=== PATIENT | male | born 1960 | race Two or more races ===

== ENCOUNTER 2024-10-14 01:21 | Inpatient (IN) | payer MEDICARE, MEDICAID ==
[~2024-10-14] VITALS: Ht 175.3 cm; Wt 65.5 kg
[2024-10-14] VITALS (9 sets, daily range): BP systolic 111–150; BP diastolic 60–82; PULSE 77–91; RESP 13–20; TEMP 98–99; O2SAT 96–99
[2024-10-14] MEDS: KETOROLAC TROMETH 30 MG/ML 1ML VIAL IV ONE (01:58)
[2024-10-14] MEDS: PANTOPRAZOLE 40 MG/10 ML VIAL INJ IV ONE (01:58)
[2024-10-14] MEDS: ONDANSETRON HCL 4 MG/2 ML VIAL IV ONE ×2 (01:58→04:19)
[2024-10-14] MEDS: SODIUM CHLORIDE 0.9% 1,000 ML IV ONE (01:58)
--- NOTE | 2024-10-14 02:00 | ED.PDOC ---
GI ASSESSMENT HPI Comments 64-year-old male who came to emergency room via EMS for abdominal pain. Patient started having burning epigastric abdominal pain since 9:00 p.m. associated with bouts of nausea and vomiting. Denies any changes in bowel habits. Possibly ate some spoiled food. Denies any history of abdominal surgeries. Chief Complaint: Abdominal Pain Time Seen by MD: 02:00 Reviewed Notes: Nurses Notes Allergies: Coded Allergies: NO KNOWN ALLERGIES (Unverified , 10/14/24) Information Source: Patient Mode of Arrival: EMS Timing: Hours Duration: Since onset Prehospital treatment: None Quality: Burning Vomitus: Watery Stool: Normal Severity: Moderate Recent: Possible spoiled food Recent Hx of: None Pain Location: Epigastric Modifying Factors: Nothing Associated sign and symptoms: Nausea, Vomiting, Abdominal Pain Past Medical History PAST MEDICAL HISTORY: High Lipids, HTN, [place] Surgical History: PTCA Family History Family History: Reviewed,noncontributory to illness Social History Smoker: Non-Smoker Alcohol: Denies ETOH Use Drugs: Denies Drug Use Lives In: Home Constitutional: denies: chills, diaphoresis, fatigue, fever, malaise, sweats, weakness, others EENTM: denies: blurred vision, double vision, ear bleeding, ear discharge, ear drainage, ear pain, ear ringing, eye pain, eye redness, hearing loss, mouth pain, mouth swelling, nasal discharge, nose bleeding, nose congestion, nose pain, photophobia, tearing, throat pain, throat swelling, voice changes, others Respiratory: denies: cough, hemoptysis, orthopnea, SOB at rest, shortness of breath, SOB with excertion, stridor, wheezing, others Cardiovascular: denies: chest pain, dizzy spells, diaphoresis, Dyspnea on exertion, edema, irregular heart beat, left arm pain, lightheadedness, palpitations, PND, syncope, others Gastrointestinal: reports: abdominal pain, nausea, vomiting; denies: abdomen distended, blood streaked bowels, constipated, diarrhea, dysphagia, difficulty swallowing, hematemesis, melena, poor appetite, poor fluid intake, rectal bleeding, rectal pain, others Genitourinary: denies: burning, dysuria, flank pain, frequency, hematuria, incontinence, penile discharge, penile sore, pain, testicle pain, testicle swelling, urgency, others Neurological: denies: dizziness, fainting, headache, left sided numbness, left sided weakness, numbness, paresthesia, pre-existing deficit, right sided numbness, right sided weakness, seizure, speech problems, tingling, tremors, weakness, others Musculoskeletal: denies: back pain, gout, joint pain, joint swelling, muscle pain, muscle stiffness, neck pain, others Integumetry: denies: bruises, change in color, change in hair/nails, dryness, laceration, lesions, lumps, rash, wounds, others Allergic/Immunocompromised: denies: Difficulty Healing, Frequent Infections, Hives, Itching, others Hematologic/Lymphatic: denies: anemia, blood clots, easy bleeding, easy bruising, swollen glands, others Endocrine: denies: excessive hunger, excessive sweating, excessive thirst, excessive urination, flushing, intolerance to cold, intolerance to heat, unexplained weight gain, unexplained weight loss, others Psychiatric: denies: anxiety, bipolar disorder, depression, hopeless, panic disorder, schizophrenia, sleepless, suicidal, others Physical Exam General Appearance: No Apparent Distress, Normal HEENT: Normal ENT Inspection, Pharynx Normal, TMs Normal Neck: Full Range of Motion, Non-Tender, Normal, Normal Inspection Respiratory: Chest Non-Tender, Lungs Clear, No Accessory Muscle Use, No Respiratory Distress, Normal Breath Sounds Cardiovascular: No Edema, No JVD, No Murmur, No Gallop, Normal Peripheral Pulses, Regular Rate/Rhythm Breast Exam: Deferred Gastrointestinal: No Organomegaly, Non Tender, No Pulsatile Mass, Normal Bowel Sounds, Soft Genitalia: Deferred Pelvic: Deferred Rectal: Deferred Extremities: No calf tenderness, Normal capillary refill, Normal inspection, Normal range of motion, Non-tender, No pedal edema Musculoskeletal : Apperance: Normal Neurologic: Alert, natural sciences professor II-XII nml as Tested, No Motor Deficits, Normal Affect, Normal Mood, No Sensory Deficits Cerebellar Function: Normal Reflexes: Normal Skin: Dry, Normal Color, Warm Lymphatic: No Adenopathy Was a procedure done? Was a procedure done?: No GI differential Dx Differential Diagnosis: Bowel Obstruction, Diverticular disease, Gastritis/PUD, Gastroenteritis, Hernia, UTI, Urolithiasis, Electrolyte Imbalance, Food Poisoning X-Ray, Labs, Meds, VS Vital Signs Date Time Temp Pulse Resp B/P (MAP) Pulse Ox O2 Delivery O2 Flow Rate FiO2 10/14/24 04:20 77 15 165/75 10/14/24 04:01 77 14 187/89 (121) 99 10/14/24 03:40 97.7 77 13 183/82 (115) 99 97.7 10/14/24 03:40 77 13 99 Room Air* 0 21 10/14/24 01:26 77 10/14/24 01:21 97.6 80 20 180/88 (118) 100 Lab Test 10/14/24 03:25 10/14/24 01:45 Range/Units Sodium Level 134 L 136-145 mmol/L Potassium Level 4.6 3.5-5.1 mmol/L Chloride Level 97 L 98-107 mmol/L Carbon Dioxide Level 21 20-31 mmol/L Anion Gap 16 H 5-15 Blood Urea Nitrogen 12 9-23 mg/dL Creatinine 0.91 0.700-1.30 mg/dL Glomerular Filtration Rate Calc 95 >90 mL/min BUN/Creatinine Ratio 13.2 10.0-20.0 Serum Glucose 354 H 74-106 mg/dL Calcium Level 10.2 8.7-10.4 mg/dL Total Bilirubin 0.9 0.2-1.0 mg/dL Aspartate Amino Transferase (AST) 20 13-40 U/L Alanine Aminotransferase (ALT) 31 7-40 U/L Alkaline Phosphatase 107 46-116 U/L Total Protein 7.5 5.7-8.2 g/dL Albumin 4.8 3.2-4.8 g/dL Lipase 62 H 12-53 U/L White Blood Count 7.9 4.4-10.8 10^3/uL Red Blood Count 4.92 4.5-5.90 10^6/uL Hemoglobin 16.1 13.5-17.5 g/dL Hematocrit 44.6 41.0-53.0 % Mean Corpuscular Volume 90.7 80.0-100.0 fL Mean Corpuscular Hemoglobin 32.8 H 28.0-32.0 pg Mean Corpuscular Hemoglobin Concent 36.2 H 32.0-36.0 g/dL Red Cell Distribution Width 12.9 11.8-14.3 % Platelet Count 217 140-450 10^3/uL Mean Platelet Volume 8.2 6.9-10.8 fL Neutrophils (%) (Auto) 75.5 37.0-80.0 % Lymphocytes (%) (Auto) 19.9 10.0-50.0 % Monocytes (%) (Auto) 3.9 0.0-12.0 % Eosinophils (%) (Auto) 0.4 0.0-7.0 % Basophils (%) (Auto) 0.3 0.0-2.0 % Neutrophils # (Auto) 6.0 1.6-8.6 10 ^3/uL Lymphocytes # (Auto) 1.6 0.4-5.4 10 ^3/uL Monocytes # (Auto) 0.3 0-1.3 10 ^3/uL Eosinophils # (Auto) 0 0-0.8 10 ^3/uL Basophils # (Auto) 0 0-0.2 10 ^3/uL Nucleated Red Blood Cells 0.1 % Troponin I High Sensitivity < 3 L </=54 ng/L Current Medications Medications (Trade) Dose Ordered Sig/Galdino Route Start Time Stop Time Status Last Admin Sodium Chloride 1,000 ml @ 1,000 mls/hr Q1H ONCE IV 10/14/24 01:30 10/14/24 02:29 DC 10/14/24 01:58 Ondansetron HCl (Zofran) 4 mg ONCE ONCE IV 10/14/24 01:30 10/14/24 01:31 DC 10/14/24 01:58 Ketorolac Tromethamine (Toradol Injection) 15 mg ONCE ONCE IV 10/14/24 01:30 10/14/24 01:31 DC 10/14/24 01:58 Pantoprazole Sodium (Protonix) 40 mg ONCE ONCE IV 10/14/24 01:30 10/14/24 01:31 DC 10/14/24 01:58 Morphine Sulfate 4 mg ONCE ONCE IV 10/14/24 04:15 10/14/24 04:16 DC 10/14/24 04:20 Ondansetron HCl (Zofran) 4 mg ONCE ONCE IV 10/14/24 04:15 10/14/24 04:16 DC 10/14/24 04:19 Time of 1ST Reevaluation: 01:56 Reevaluation 1ST: Unchanged Patient Education/Counseling: Diagnosis, Treatment Family Education/Counseling: No Family Present Departure 1 Departure Time of Disposition: 05:25 (Patient presented with abdominal pain that was concerning for possible appendicits, gastritis, cholecystitis, colitis, gastroenteritis, sbo, or orther possible surgical emergency. Data: 1. I ordered and reviewed the result of at least 3 labs including a CBC, BMP, and Urinalysis. 2. I independently interpreted the following tests: CT Abdoment and Pelvis is concerning for hydroureter .Risk:This patient has a high risk of morbidity due to further diagnostic testing or treatment and may suffer from an acute abdominal process disorder. Workup reveals bilateral hydroureter and patient's inability to tolerate p.o. with intractable abdominal pain. and patient should be admitted for further workup. and possible expert consultation. ) Impression: Primary Impression: Projectile vomiting with nausea Additional Impressions: Intractable abdominal pain Hydroureter Disposition: ADMITTED INPATIENT Admit to: Med Surg Condition: Serious Critical Care Note Critical Care Time?: Yes (35 min-critical care time only) Critical care comment: Intractable abdominal pain Authorized and Performed by: Kiley Armas MD Total critical care time: Approximately 48 minutes Due to a high probability of clinically significant, life threatening deterioration, the patient required my highest level of preparedness to intervene emergently and I personally spent this critical care time directly and personally managing the patient. This critical care time included obtaining a history; examining the patient; pulse oximetry; ordering and review of studies; arranging urgent treatment with development of a management plan; evaluation of patient's response to treatment; frequent reassessment; and, discussions with other providers. This critical care time was performed to assess and manage the high probability of imminent, life-threatening deterioration that could result in multi-organ failure. It was exclusive of separately billable procedures and treating other patients and teaching time. Please see my other sections and the rest of the note for further information on patient assessment and treatment. Stability Stability form required: No Heart Score Heart Score: Heart Score Response (Comments) Value History N/A 0 EKG N/A 0 Age N/A 0 Risk Factors N/A 0 Troponin N/A 0 Total 0 I personally scribed for KILEY ARMAS MD ([email or web address]) on 10/14/24 at 02:00. Electronically submitted by Mike Felipe ([email or web address]). KILEY ARMAS MD Oct 14, 2024 02:00
[2024-10-14 02:35] LABS: Basophils # (auto) 0 10 ^3/uL (0-0.2); Basophils % (auto) 0.3 % (0.0-2.0); Eosinophils # (auto) 0 10 ^3/uL (0-0.8); Eosinophils % (auto) 0.4 % (0.0-7.0); Hematocrit 44.6 % (41.0-53.0); Hemoglobin 16.1 g/dL (13.5-17.5); Lymphocytes # (auto) 1.6 10 ^3/uL (0.4-5.4); Lymphocytes % (auto) 19.9 % (10.0-50.0); Mean Corpuscular Hemoglobin 32.8 pg (28.0-32.0); Mean Corpuscular Hgb Conc. 36.2 g/dL (32.0-36.0); Mean Corpuscular Volume 90.7 fL (80.0-100.0); Monocytes # (auto) 0.3 10 ^3/uL (0-1.3); Monocytes % (auto) 3.9 % (0.0-12.0); Neutrophils % (auto) 75.5 % (37.0-80.0); Nucleated Red Blood Cells % 0.1 %; Platelet Count (auto) 217 10^3/uL (140-450); Red Blood Cells 4.92 10^6/uL (4.5-5.90); Red Cell Distribution Width 12.9 % (11.8-14.3); White Blood Cell 7.9 10^3/uL (4.4-10.8)
[2024-10-14] MEDS: IOHEXOL 300 MG/ML 100ML BOTTLE IJ ONE (03:19)
[2024-10-14 04:02] LABS: Anion Gap 16 (5-15)
[2024-10-14 04:19] LABS: BUN/Creatinine Ratio 13.2 (10.0-20.0)
[2024-10-14 04:20] LABS: Alanine Aminotransferase 31 U/L (7-40); Albumin 4.8 g/dL (3.2-4.8); Alkaline Phosphatase 107 U/L (46-116); Aspartate Aminotransferase 20 U/L (13-40); Bilirubin, Total 0.9 mg/dL (0.2-1.0); Blood Urea Nitrogen 12 mg/dL (9-23); Calcium 10.2 mg/dL (8.7-10.4); Carbon Dioxide 21 mmol/L (20-31); Chloride 97 mmol/L (98-107); Glucose 354 mg/dL (74-106); Lipase 62 U/L (12-53); Potassium 4.6 mmol/L (3.5-5.1); Sodium 134 mmol/L (136-145); Total Protein 7.5 g/dL (5.7-8.2)
[2024-10-14] MEDS: MORPHINE SULFATE 4 MG/ML SYR/VIAL IV ONE (04:20)
--- NOTE | 2024-10-14 05:23 | DVH ---
Exam: CT CT AB PEL WITH IV CON ONLY History: abdominal pain, inability to tolerate po Comparison Study: None available at time of dictation. Contrast: 100 cc Omnipaque 300 TECHNIQUE: A digital road mechanic image was obtained. During the uneventful, intravenous administration of c ontrast material, multislice data acquisition was obtained through the abdomen and pelvis. The data s et was subsequently reconstructed into axial images. Images were reviewed on a work station using a c ombination of axial and multiplanar using a variety of window levels and settings. All CT scans at this medical facility are performed using dose modulation techniques as appropriate t o a performed exam including the following: Automated exposure control was utilized; adjustment of th e MA and/or KV according to patient size; and use of iterative reconstruction technique. Radiation Dose Information: CT Dose: CTDI volume is 8.3 mGy. Dose-length product is 491 mGy*cm FINDINGS: Imaged portions of the lung bases demonstrate interstitial prominence. There is diffuse hepatic steatosis. Gallbladder, spleen, pancreas and adrenal glands appear unremark able. The kidneys appear symmetric. Small hiatal hernia. No evidence of bowel obstruction or focal bowel wall thickening. Moderate intracolonic stool. The a ppendix appears normal. No free fluid, free air, or adenopathy. Urinary bladder is mildly distended with mild bilateral hydroureter. No free fluid, free air, or adenopathy. No suspicious osseous lesion. IMPRESSION: 1. Prominent urinary bladder with mild bilateral hydroureter. 2. Diffuse hepatic steatosis 3. Small hiatal hernia HS:Y
[2024-10-14 05:29] LABS: Urine Bacteria None Seen /hpf (None Seen)
[2024-10-14 05:45] LABS: Urine Blood Negative /uL (Negative); Urine Clarity Clear (Clear); Urine Color Light-Yellow (Yellow); Urine Protein, UAD TRACE (Negative); Urine Specific Gravity 1.034 (1.001-1.035); Urine Squamous Epithelial Cell None Seen /hpf (<5); Urine Urobilinogen Normal (Negative); Urine WBC < 1 /HPF (0-3)
[2024-10-14] MEDS: hydrALAZINE HCL 20 MG/ML VL IV ONE (06:02)
[2024-10-14] MEDS ORDERED: ACETAMINOPHEN 325 MG TAB PO PRN (06:45)
[2024-10-14] MEDS ORDERED: ONDANSETRON HCL 4 MG/2 ML VIAL IV PRN (06:45)
[2024-10-14] MEDS ORDERED: LORazepam 0.5 MG TAB PO PRN (06:45)
[2024-10-14] MEDS ORDERED: DEXTROSE (50%) 50ML SYRG IV PRN (06:45)
[2024-10-14] MEDS ORDERED: HYDROcodone-ACET 5/325MG TAB PO PRN (06:45)
[2024-10-14] MEDS ORDERED: CLOP75TA70 PO (06:57)
[2024-10-14] MEDS ORDERED: METO-289 PO (06:57)
--- NOTE | 2024-10-14 07:01 | DVHHP2 ---
History of Present Illness Reason for Visit: Abdominal pain History of Present Illness Bc Gomez is a 64-year-old male with past medical history of hypertension, hyperlipidemia, diabetes, [place] status post PTCA x4 at [place] who presents to the ED with abdominal pain with nausea and vomiting after eating shrimp and having 4 beers. Patient reports that the pain is currently 6/10 burning and sharp intermittent in nature. Patient reports that he drinks 6 beers per day on the weekends however daughter and states that he drinks daily. He also reports that the abdominal pain is localized. Patient denies any chest pain, shortness of breath, fever, chills, lightheadedness, weakness, dizziness, bloody stool, bloody emesis, diarrhea, and recent trauma or injury. Cardiovascular: HTN, GA, hyperipidemia Endocrine: Diabetes Past Surgical History: Other (PTCA x4 at [place]) Family History: None Smoke: No ALCOHOL: heavy Drugs: None Lives: Alone Domestic Violence: Neg Review of Systems Gastrointestinal: Nausea, Vomiting, Abdominal Pain Allergies: Coded Allergies: NO KNOWN ALLERGIES (Unverified , 10/14/24) Exam Vital Signs Vital Signs Date Time Temp Pulse Resp B/P (MAP) Pulse Ox O2 Delivery O2 Flow Rate FiO2 10/14/24 06:02 165/75 10/14/24 06:00 73 14 94 10/14/24 03:40 97.7 97.7 10/14/24 03:40 Room Air* 0 21 General Appearance: Alert, Oriented X3, Cooperative, No acute distress HEENT: Atraumatic, PERRLA, EOMI, Mucous membr. moist/pink Respiratory: Clear to auscultation, Normal air movement Cardiovascular: Regular rate, Normal S1, Normal S2, No murmurs Abdominal: Soft, No hepatospenomegaly, No masses Extremities: No clubbing, No cyanosis, No edema, Normal pulses, No tenderness/swelling Skin: No rashes, No breakdown, No significant lesion Neuro: Normal gait, Normal speech, Strength at 5/5 X4 ext, Normal tone, Sensation intact Psych/Mental Status: Mental status NL, Mood NL Labs/Xrays Labs Test 10/14/24 05:39 10/14/24 05:15 10/14/24 03:25 10/14/24 01:45 Range/Units POC Glucose 301 H 70-106 mg/dl Urine Color Light-yellow Yellow Urine Clarity Clear Clear Urine pH 7.0 5.0-9.0 Urine Specific [place] 1.034 1.001-1.035 Urine Protein Trace H Negative Urine Ketones 1+ H Negative Urine Blood Negative Negative /uL Urine Nitrite Negative Negative Urine Bilirubin Negative Negative Urine Urobilinogen Normal Negative mg/dL Urine Leukocyte Esterase Negative Negative /uL Urine RBC None seen 0 - 3 /hpf Urine Microscopic WBC < 1 0-3 /HPF Urine Squamous Epithelial Cells None seen <5 /hpf Urine Bacteria None seen None Seen /hpf Urine Glucose 4+ H Normal mg/dL Sodium Level 134 L 136-145 mmol/L Potassium Level 4.6 3.5-5.1 mmol/L Chloride Level 97 L 98-107 mmol/L Carbon Dioxide Level 21 20-31 mmol/L Anion Gap 16 H 5-15 Blood Urea Nitrogen 12 9-23 mg/dL Creatinine 0.91 0.700-1.30 mg/dL Glomerular Filtration Rate Calc 95 >90 mL/min BUN/Creatinine Ratio 13.2 10.0-20.0 Serum Glucose 354 H 74-106 mg/dL Calcium Level 10.2 8.7-10.4 mg/dL Total Bilirubin 0.9 0.2-1.0 mg/dL Aspartate Amino Transferase (AST) 20 13-40 U/L Alanine Aminotransferase (ALT) 31 7-40 U/L Alkaline Phosphatase 107 46-116 U/L Total Protein 7.5 5.7-8.2 g/dL Albumin 4.8 3.2-4.8 g/dL Lipase 62 H 12-53 U/L White Blood Count 7.9 4.4-10.8 10^3/uL Red Blood Count 4.92 4.5-5.90 10^6/uL Hemoglobin 16.1 13.5-17.5 g/dL Hematocrit 44.6 41.0-53.0 % Mean Corpuscular Volume 90.7 80.0-100.0 fL Mean Corpuscular Hemoglobin 32.8 H 28.0-32.0 pg Mean Corpuscular Hemoglobin Concent 36.2 H 32.0-36.0 g/dL Red Cell Distribution Width 12.9 11.8-14.3 % Platelet Count 217 140-450 10^3/uL Mean Platelet Volume 8.2 6.9-10.8 fL Neutrophils (%) (Auto) 75.5 37.0-80.0 % Lymphocytes (%) (Auto) 19.9 10.0-50.0 % Monocytes (%) (Auto) 3.9 0.0-12.0 % Eosinophils (%) (Auto) 0.4 0.0-7.0 % Basophils (%) (Auto) 0.3 0.0-2.0 % Neutrophils # (Auto) 6.0 1.6-8.6 10 ^3/uL Lymphocytes # (Auto) 1.6 0.4-5.4 10 ^3/uL Monocytes # (Auto) 0.3 0-1.3 10 ^3/uL Eosinophils # (Auto) 0 0-0.8 10 ^3/uL Basophils # (Auto) 0 0-0.2 10 ^3/uL Nucleated Red Blood Cells 0.1 % Troponin I High Sensitivity < 3 L </=54 ng/L Exam: CT CT AB PEL WITH IV CON ONLY History: abdominal pain, inability to tolerate po Comparison Study: None available at time of dictation. Contrast: 100 cc Omnipaque 300 TECHNIQUE: A digital cnc wood lathe operator image was obtained. During the uneventful, intravenous administration of contrast material, multislice data acquisition was obtained through the abdomen and pelvis. The data set was subsequently reconstructed into axial images. Images were reviewed on a work station using a combination of axial and multiplanar using a variety of window levels and set tings. All CT scans at this medical facility are performed using dose modulation techniques as appropriate to a performed exam including the following: Automated exposure control was utilized; adjustment of the MA and/or KV according to patient size; and use of iterative reconstruction technique. Radiation Dose Information: CT Dose: CTDI volume is 8.3 mGy. Dose-length product is 491 mGy*cm FINDINGS: Imaged portions of the lung bases demonstrate interstitial prominence. There is diffuse hepatic steatosis. Gallbladder, spleen, pancreas and adrenal glands appear unremarkable. The kidneys appear symmetric. Small hiatal hernia. No evidence of bowel obstruction or focal bowel wall thickening. Moderate intracolonic stool. The appendix appears normal. No free fluid, free air, or adenopathy. Urinary bladder is mildly distended with mild bilateral hydroureter. No free fluid, free air, or adenopathy. No suspicious osseous lesion. IMPRESSION: 1. Prominent urinary bladder with mild bilateral hydroureter. 2. Diffuse hepatic steatosis 3. Small hiatal hernia Assessment/Plan Assessment/Plan Assessment Intractable abdominal pain likely due to gastroenteritis from ETOH abuse Glucosuria Hyperlipasemia Hyponatremia Diabetes type 2 uncontrolled Mild bilateral hydroureters Diffuse hepatic steatosis Small hiatal hernia History of hypertension History of hyperlipidemia History of GA status post PTCA x4 at [place] 5 years ago Plan Admit to [facility] Hemoglobin A1c ISS and Accu-Cheks Amylase CIWA protocol Counseled patient on cessation of EtOH abuse UA CT abdomen and pelvis P.r.n. hypertensive Antiemetics Pain management PPI IV fluids given in ED EKG Troponin negative x1 Continue home medications Plan discussed with: Patient My Orders Orders - GARRET SOTO MASTER [employer] Procedure Category Date Status Time Blood Alcohol LAB 10/14/24 Verified 06:41 Urinalysis LAB 10/14/24 Verified 06:41 Magnesium LAB 10/14/24 Verified 06:41 Thiamine 100mg Po PHA 10/14/24 Verified Daily 10:00 Folic Acid 1mg Po PHA 10/14/24 Verified Daily 10:00 Mvi Tablet Po Daily PHA 10/14/24 Verified 10:00 Thiamine 100mg Po Now PHA 10/14/24 Verified 06:45 Mvi 1 Tablet Po Now PHA 10/14/24 Verified 06:45 Folic Acid 1mg Po Now PHA 10/14/24 Verified 06:45 Ativan 2mg Po Stat PHA 10/14/24 Verified 06:45 Ativan 2mg Po Q4h Atc PHA 10/14/24 Verified 06:45 Ativan 2mg Po Q2hr Prn PHA 10/14/24 Verified 06:45 Etoh Withdrawal EKTA 10/14/24 Verified Assessment 06:41 Etoh Withdrawal EKTA 10/14/24 Verified Assessment 06:41 Amylase LAB 10/14/24 Verified 06:41 Admit ADMIT 10/14/24 Verified 06:41 Allergies EKTA 10/14/24 Verified 06:41 Code Status CODE 10/14/24 Verified 06:41 Hydrocodone-Acet PHA 10/14/24 Verified 5/325mg Tab ([place] 06:45 Ondansetron Hcl PHA 10/14/24 Verified (Zofran) 06:45 Complete Blood Count LAB 10/15/24 Verified 04:00 Comprehensive LAB 10/15/24 Verified Metabolic Panel 04:00 Cardiac DIET 10/14/24 Verified Diet-2gna,Lofat,Lochol Breakfast Acetaminophen Tablet PHA 10/14/24 Verified (Tylenol Tablet) 06:45 Glucose Blood PHA 10/14/24 Verified (Accu-Chek Comfort 07:00 Mild Sliding Scale PHA 10/14/24 Verified 07:00 Dextrose 50% Syringe PHA 10/14/24 Verified 06:45 Hemoglobin A1c LAB 10/14/24 Verified 06:41 Date of Service: Oct 14, 2024 Billing Provider: GARRET SOTO Common Visit Codes: [id number] INP/OBS CARE (HIGH) GARRET SOTO Oct 14, 2024 07:01
--- NOTE | 2024-10-14 07:18 | ECG ---
[facility] Test Date: 2024-10-14 Test Time: 01:26:30 Pat Name: SUNIL WILCOX Department: ED Room: 0294 Gender: M Pearl Fisherman: : 1960 Requested By: KILEY BROWN Order Number: [id number] Reading MD: Preston Huerta Measurements Intervals [place] Rate: 77 P: -2 [place]: 164 QRS: 8 QRSD: 125 T: 39 QT: 435 QTc: 493 Interpretive Statements Sinus rhythm Nonspecific intraventricular conduction delay Electronically Signed On 10-15-2024 18:45:05 PST by Preston Huerta Please click the below link to view image of tracing.
[2024-10-14 08:29] LABS: Amylase 82 U/L (30-118)
[2024-10-14 08:35] LABS: Blood Alcohol < 3.0 mg/dL (<10)
[2024-10-14] MEDS: InsuLIN REG 1unit/0.01ml Soln (100units/ml) SC SCH (09:05)
[2024-10-14] MEDS: LORazepam 0.5 MG TAB PO ONE (09:06)
[2024-10-14] MEDS: MULTIPLE VITAMIN TAB PO ONE (09:06)
[2024-10-14] MEDS: FOLIC ACID 1 MG TAB PO ONE (09:06)
[2024-10-14] MEDS: THIAMINE HCL 100 MG TAB PO ONE (09:06)
[2024-10-14] MEDS: LORazepam 0.5 MG TAB PO SCH (09:07)
[2024-10-14] MEDS: ACCU-CHEK COMFORT CURVE STRIP VI SCH (09:07)
--- NOTE | 2024-10-14 13:19 | DVHPN2 ---
Reviewed: Care Plan, H&P, Labs, Medications, Previous Orders, Radiology Changes from previous H/P or p: No Changes Gastrointestinal: Nausea, Vomiting, Abdominal Pain Objective Vitals Vital Signs Date Time Temp Pulse Resp B/P (MAP) Pulse Ox O2 Delivery O2 Flow Rate FiO2 10/14/24 13:10 98.6 89 16 122/75 (91) 97 98.6 10/14/24 10:35 Room Air* 0 21 Intake/Output Intake and Output 10/14/24 07:00 Intake Total 1000 ml Balance 1000 ml Intake IV Total 1000 ml Medications Current Medications Medications Dose Ordered Sig/Galdino Route Start Time Stop Time Status Last Admin Dose Admin Thiamine HCl 100 mg DAILY PO 10/15/24 10:00 Folic Acid 1 mg DAILY PO 10/15/24 10:00 Multivitamins 1 tab DAILY PO 10/15/24 10:00 Lorazepam 2 mg Q4H PO 10/14/24 06:45 Lorazepam 2 mg Q2HPRN PRN PO 10/14/24 06:45 Acetaminophen/ Hydrocodone Bitart 1 tab Q4HP PRN PO 10/14/24 06:45 Ondansetron HCl 4 mg Q4HP PRN IV 10/14/24 06:45 Acetaminophen 650 mg Q6HP PRN PO 10/14/24 06:45 Diagnostic Test (Pha) 1 strip ACHS 10/14/24 07:00 10/14/24 12:23 1 STRIP Insulin Human Regular ACHS SC 10/14/24 07:00 10/14/24 12:23 4 UNITS Dextrose 50 ml UD PRN IV 10/14/24 06:45 Laboratory Results Laboratory Tests 10/14/24 01:45 10/14/24 03:25 Chemistry Test 10/14/24 03:25 10/14/24 07:44 Albumin 4.8 g/dL (3.2-4.8) Calcium Level 10.2 mg/dL (8.7-10.4) Total Protein 7.5 g/dL (5.7-8.2) Magnesium Level 2.0 mg/dL (1.6-2.6) Lipid panel Test 10/14/24 03:25 Lipase 62 U/L (12-53) H LFT Test 10/14/24 03:25 Alanine Aminotransferase (ALT) 31 U/L (7-40) Alkaline Phosphatase 107 U/L (46-116) Aspartate Amino Transferase (AST) 20 U/L (13-40) Total Bilirubin 0.9 mg/dL (0.2-1.0) HgA1c, TSH Test 10/14/24 01:45 Hemoglobin A1c 10.2 % A1C (<5.7) H Urinalysis Test 10/14/24 05:15 Urine Color Light-yellow (Yellow) Urine Clarity Clear (Clear) Urine pH 7.0 (5.0-9.0) Urine Specific [place] 1.034 (1.001-1.035) Urine Protein Trace (Negative) H Urine Ketones 1+ (Negative) H Urine Blood Negative /uL (Negative) Urine Nitrite Negative (Negative) Urine Bilirubin Negative (Negative) Urine Urobilinogen Normal mg/dL (Negative) Urine Leukocyte Esterase Negative /uL (Negative) Urine RBC None seen /hpf (0 - 3) Urine Microscopic WBC < 1 /HPF (0-3) Urine Squamous Epithelial Cells None seen /hpf (<5) Urine Bacteria None seen /hpf (None Seen) Urine Glucose 4+ mg/dL (Normal) H Labs and/or images reviewed: Labs reviewed by me, Image(s) reviewed by me Assessment/Plan Assessment/Plan Intractable abdominal pain secondary to Acute gastroenteritis Alcoholic withdrawal: Banana bag Librium Mild bilateral hydroureteronephrosis Hypertension Hypercholesterolemia History of [place] status post PTCA x4 at [place] five years ago Possible food poisoning: CT abdomen pelvis without contrast negative Uncontrolled diabetes the glucose 300 A1c 10.2, insulin sliding scale Time spent 55 minutes Patient is full code Advanced care planning time 20 mts Plan discussed with: Patient My Orders Orders - LESA CAMPOS MD Procedure Category Date Status Time Hepatitis B Surface LAB 10/14/24 In Process Antigen 11:34 Hepatitis C Antibody LAB 10/14/24 In Process 11:34 Date of Service: Oct 14, 2024 Billing Provider: LESA CAMPOS MD Common Visit Codes: [id number] INP/OBS CARE(HIGH) Secondary Visit Codes: [id number] CARE PLAN 30 MINUTES LESA CAMPOS MD Oct 14, 2024 13:19
[2024-10-15 01:00] VITALS: BP 134/77; PULSE 80; RESP 19; TEMP 98.2; O2SAT 96
[2024-10-15 05:00] VITALS: BP 152/85; PULSE 83; RESP 19; TEMP 98.1; O2SAT 99
[2024-10-15 08:22] LABS: Basophils # (auto) 0 10 ^3/uL (0-0.2); Basophils % (auto) 0.2 % (0.0-2.0); Eosinophils # (auto) 0.1 10 ^3/uL (0-0.8); Eosinophils % (auto) 0.8 % (0.0-7.0); Hematocrit 41.5 % (41.0-53.0); Hemoglobin 14.6 g/dL (13.5-17.5); Lymphocytes # (auto) 1.1 10 ^3/uL (0.4-5.4); Lymphocytes % (auto) 14.8 % (10.0-50.0); Mean Corpuscular Hemoglobin 32.4 pg (28.0-32.0); Mean Corpuscular Hgb Conc. 35.2 g/dL (32.0-36.0); Monocytes # (auto) 0.4 10 ^3/uL (0-1.3); Monocytes % (auto) 4.8 % (0.0-12.0); Neutrophils # (auto) 6.1 10 ^3/uL (1.6-8.6); Neutrophils % (auto) 79.4 % (37.0-80.0); Nucleated Red Blood Cells % 0.1 %; Platelet Count (auto) 192 10^3/uL (140-450); Red Blood Cells 4.51 10^6/uL (4.5-5.90); Red Cell Distribution Width 13.1 % (11.8-14.3); White Blood Cell 7.6 10^3/uL (4.4-10.8)
[2024-10-15 08:32] LABS: Alanine Aminotransferase 21 U/L (7-40); Alkaline Phosphatase 97 U/L (46-116); Anion Gap 12 (5-15); Calcium 9.8 mg/dL (8.7-10.4); Carbon Dioxide 22 mmol/L (20-31); Chloride 99 mmol/L (98-107); Potassium 3.7 mmol/L (3.5-5.1)
[2024-10-15 08:33] LABS: BUN/Creatinine Ratio 19.3 (10.0-20.0); Blood Urea Nitrogen 21 mg/dL (9-23); Total Protein 6.7 g/dL (5.7-8.2)
[2024-10-15 08:35] LABS: Albumin 4.1 g/dL (3.2-4.8); Aspartate Aminotransferase 16 U/L (13-40); Bilirubin, Total 0.9 mg/dL (0.2-1.0)
[2024-10-15 08:38] LABS: Glucose 262 mg/dL (74-106); Sodium 133 mmol/L (136-145)
[2024-10-15 09:00] VITALS: BP 136/82; PULSE 82; RESP 16; TEMP 98.1; O2SAT 98
[2024-10-15] MEDS: MULTIPLE VITAMIN TAB PO SCH (09:36)
[2024-10-15] MEDS: FOLIC ACID 1 MG TAB PO SCH (09:36)
[2024-10-15] MEDS: THIAMINE HCL 100 MG TAB PO SCH (09:37)
--- NOTE | 2024-10-15 12:09 | DVHPN2 ---
Reviewed: Care Plan, H&P, Labs, Medications, Previous Orders, Radiology Changes from previous H/P or p: No Changes Gastrointestinal: Nausea, Vomiting, Abdominal Pain Objective Vitals Vital Signs Date Time Temp Pulse Resp B/P (MAP) Pulse Ox O2 Delivery O2 Flow Rate FiO2 10/15/24 09:00 98.1 82 16 136/82 (100) 98 98.1 10/15/24 08:00 Room Air* 0 21 Intake/Output Intake and Output 10/15/24 07:00 Intake Total 900 ml Balance 900 ml Intake Oral 900 ml Medications Current Medications Medications Dose Ordered Sig/Galdino Route Start Time Stop Time Status Last Admin Dose Admin Thiamine HCl 100 mg DAILY PO 10/15/24 10:00 10/15/24 09:37 100 MG Folic Acid 1 mg DAILY PO 10/15/24 10:00 10/15/24 09:36 1 MG Multivitamins 1 tab DAILY PO 10/15/24 10:00 10/15/24 09:36 1 TAB Lorazepam 2 mg Q4H PO 10/14/24 06:45 10/15/24 09:38 2 MG Lorazepam 2 mg Q2HPRN PRN PO 10/14/24 06:45 Acetaminophen/ Hydrocodone Bitart 1 tab Q4HP PRN PO 10/14/24 06:45 Ondansetron HCl 4 mg Q4HP PRN IV 10/14/24 06:45 Acetaminophen 650 mg Q6HP PRN PO 10/14/24 06:45 Diagnostic Test (Pha) 1 strip ACHS 10/14/24 07:00 10/15/24 11:39 1 STRIP Insulin Human Regular ACHS SC 10/14/24 07:00 10/15/24 11:39 8 UNITS Dextrose 50 ml UD PRN IV 10/14/24 06:45 Laboratory Results Laboratory Tests 10/15/24 07:01 Chemistry Test 10/15/24 07:01 Albumin 4.1 g/dL (3.2-4.8) Calcium Level 9.8 mg/dL (8.7-10.4) Total Protein 6.7 g/dL (5.7-8.2) LFT Test 10/15/24 07:01 Alanine Aminotransferase (ALT) 21 U/L (7-40) Alkaline Phosphatase 97 U/L (46-116) Aspartate Amino Transferase (AST) 16 U/L (13-40) Total Bilirubin 0.9 mg/dL (0.2-1.0) Urinalysis Test 10/14/24 05:15 Urine Color Light-yellow (Yellow) Urine Clarity Clear (Clear) Urine pH 7.0 (5.0-9.0) Urine Specific [place] 1.034 (1.001-1.035) Urine Protein Trace (Negative) H Urine Ketones 1+ (Negative) H Urine Blood Negative /uL (Negative) Urine Nitrite Negative (Negative) Urine Bilirubin Negative (Negative) Urine Urobilinogen Normal mg/dL (Negative) Urine Leukocyte Esterase Negative /uL (Negative) Urine RBC None seen /hpf (0 - 3) Urine Microscopic WBC < 1 /HPF (0-3) Urine Squamous Epithelial Cells None seen /hpf (<5) Urine Bacteria None seen /hpf (None Seen) Urine Glucose 4+ mg/dL (Normal) H Labs and/or images reviewed: Labs reviewed by me, Image(s) reviewed by me Assessment/Plan Assessment/Plan Intractable abdominal pain secondary to Acute gastroenteritis Alcoholic withdrawal: Banana bag Librium Mild Pancreatitis lipase 62 Mild bilateral hydroureteronephrosis Hypertension Hypercholesterolemia History of [place] status post PTCA x4 at [place] five years ago Possible food poisoning: CT abdomen pelvis without contrast negative Uncontrolled diabetes glucose 300 A1c 10.2, insulin sliding scale Time spent 55 minutes Patient is full code Advanced care planning time 20 mts Plan discussed with: Patient Date of Service: Oct 15, 2024 Billing Provider: LESA CAMPOS MD Common Visit Codes: [id number] INP/OBS CARE(HIGH) LESA CAMPOS MD Oct 15, 2024 12:09
[2024-10-15 13:00] VITALS: BP 144/79; PULSE 93; RESP 17; TEMP 98.1; O2SAT 97
[2024-10-15 17:00] VITALS: BP 131/79; PULSE 88; RESP 16; TEMP 98.4; O2SAT 96
[2024-10-15 21:00] VITALS: BP 125/75; PULSE 91; RESP 18; TEMP 98.4; O2SAT 97
[2024-10-16 01:00] VITALS: BP 145/87; PULSE 88; RESP 18; TEMP 98.3; O2SAT 98
[2024-10-16 05:00] VITALS: BP 153/86; PULSE 78; RESP 18; TEMP 97.5; O2SAT 96
[2024-10-16] MEDS: hydrALAZINE HCL 20 MG/ML VL IV PRN (06:55)
[2024-10-16 09:19] VITALS: BP 130/73; PULSE 92; RESP 16; TEMP 97.7; O2SAT 97
[2024-10-16 10:40] LABS: Hepatitis B Surface Antigen Negative (Negative); Hepatitis C Antibody Negative (Negative)
[2024-10-16] MEDS ORDERED: ZOFR4T PO (12:20)
[2024-10-16] MEDS ORDERED: FOLI-119 PO (12:20)
[2024-10-16] MEDS ORDERED: CHL25C PO (12:20)
[2024-10-16] MEDS ORDERED: THIA100T13 PO (12:20)
--- NOTE | 2024-10-16 12:30 | DVHPN2 ---
Reviewed: Care Plan, H&P, Labs, Medications, Previous Orders, Radiology Changes from previous H/P or p: No Changes Gastrointestinal: Nausea, Vomiting, Abdominal Pain Objective Vitals Vital Signs Date Time Temp Pulse Resp B/P (MAP) Pulse Ox O2 Delivery O2 Flow Rate FiO2 10/16/24 09:19 97.7 92 16 130/73 (92) 97 97.7 10/16/24 08:15 Room Air* 0 21 Intake/Output Intake and Output 10/16/24 07:00 Intake Total 1704 ml Balance 1704 ml Intake Oral 1704 ml # Voids 4 # Bowel Movements 2 Medications Current Medications Medications Dose Ordered Sig/Galdino Route Start Time Stop Time Status Last Admin Dose Admin Thiamine HCl 100 mg DAILY PO 10/15/24 10:00 10/16/24 09:50 100 MG Folic Acid 1 mg DAILY PO 10/15/24 10:00 10/16/24 09:50 1 MG Multivitamins 1 tab DAILY PO 10/15/24 10:00 10/16/24 09:50 1 TAB Lorazepam 2 mg Q4H PO 10/14/24 06:45 10/15/24 18:11 2 MG Lorazepam 2 mg Q2HPRN PRN PO 10/14/24 06:45 Acetaminophen/ Hydrocodone Bitart 1 tab Q4HP PRN PO 10/14/24 06:45 Ondansetron HCl 4 mg Q4HP PRN IV 10/14/24 06:45 Acetaminophen 650 mg Q6HP PRN PO 10/14/24 06:45 Diagnostic Test (Pha) 1 strip ACHS 10/14/24 07:00 10/16/24 06:54 1 STRIP Insulin Human Regular ACHS SC 10/14/24 07:00 10/16/24 06:59 4 UNITS Dextrose 50 ml UD PRN IV 10/14/24 06:45 Hydralazine HCl 10 mg Q6HP PRN IV 10/16/24 06:30 10/16/24 06:55 10 MG Laboratory Results Laboratory Tests 10/15/24 07:01 Urinalysis Test 10/14/24 05:15 Urine Color Light-yellow (Yellow) Urine Clarity Clear (Clear) Urine pH 7.0 (5.0-9.0) Urine Specific [place] 1.034 (1.001-1.035) Urine Protein Trace (Negative) H Urine Ketones 1+ (Negative) H Urine Blood Negative /uL (Negative) Urine Nitrite Negative (Negative) Urine Bilirubin Negative (Negative) Urine Urobilinogen Normal mg/dL (Negative) Urine Leukocyte Esterase Negative /uL (Negative) Urine RBC None seen /hpf (0 - 3) Urine Microscopic WBC < 1 /HPF (0-3) Urine Squamous Epithelial Cells None seen /hpf (<5) Urine Bacteria None seen /hpf (None Seen) Urine Glucose 4+ mg/dL (Normal) H Labs and/or images reviewed: Labs reviewed by me, Image(s) reviewed by me Assessment/Plan Assessment/Plan Intractable abdominal pain secondary to Acute gastroenteritis Alcoholic withdrawal: Banana bag Librium Mild Pancreatitis lipase 62 Mild bilateral hydroureteronephrosis Hypertension Hypercholesterolemia History of [place] status post PTCA x4 at [place] five years ago Possible food poisoning: CT abdomen pelvis without contrast negative Uncontrolled diabetes glucose 300 A1c 10.2, insulin sliding scale Time spent 55 minutes Patient is full code Advanced care planning time 20 mts Plan discussed with: Patient Date of Service: Oct 16, 2024 Billing Provider: LESA CAMPOS MD Common Visit Codes: [id number] INP/OBS CARE(HIGH) LESA CAMPOS MD Oct 16, 2024 12:30
--- NOTE | 2024-10-16 12:34 | DVHDS2 ---
Discharge Summary Date of Admission Oct 14, 2024 at 06:41 Date of Discharge: Oct 16, 2024 Admitting Diagnosis Abdominal pain Wounds: None Labs/Diagnostic Data: Laboratory Results Test 10/15/24 07:01 10/14/24 20:53 10/14/24 11:45 10/14/24 07:44 White Blood Count 7.6 10^3/uL (4.4-10.8) Red Blood Count 4.51 10^6/uL (4.5-5.90) Hemoglobin 14.6 g/dL (13.5-17.5) Hematocrit 41.5 % (41.0-53.0) Mean Corpuscular Volume 92.0 fL (80.0-100.0) Mean Corpuscular Hemoglobin 32.4 pg (28.0-32.0) Mean Corpuscular Hemoglobin Concent 35.2 g/dL (32.0-36.0) Red Cell Distribution Width 13.1 % (11.8-14.3) Platelet Count 192 10^3/uL (140-450) Mean Platelet Volume 7.8 fL (6.9-10.8) Neutrophils (%) (Auto) 79.4 % (37.0-80.0) Lymphocytes (%) (Auto) 14.8 % (10.0-50.0) Monocytes (%) (Auto) 4.8 % (0.0-12.0) Eosinophils (%) (Auto) 0.8 % (0.0-7.0) Basophils (%) (Auto) 0.2 % (0.0-2.0) Neutrophils # (Auto) 6.1 10 ^3/uL (1.6-8.6) Lymphocytes # (Auto) 1.1 10 ^3/uL (0.4-5.4) Monocytes # (Auto) 0.4 10 ^3/uL (0-1.3) Eosinophils # (Auto) 0.1 10 ^3/uL (0-0.8) Basophils # (Auto) 0 10 ^3/uL (0-0.2) Nucleated Red Blood Cells 0.1 % Sodium Level 133 mmol/L (136-145) Potassium Level 3.7 mmol/L (3.5-5.1) Chloride Level 99 mmol/L (98-107) Carbon Dioxide Level 22 mmol/L (20-31) Anion Gap 12 (5-15) Blood Urea Nitrogen 21 mg/dL (9-23) Creatinine 1.09 mg/dL (0.700-1.30) Glomerular Filtration Rate Calc 77 mL/min (>90) BUN/Creatinine Ratio 19.3 (10.0-20.0) Serum Glucose 262 mg/dL (74-106) Calcium Level 9.8 mg/dL (8.7-10.4) Total Bilirubin 0.9 mg/dL (0.2-1.0) Aspartate Amino Transferase (AST) 16 U/L (13-40) Alanine Aminotransferase (ALT) 21 U/L (7-40) Alkaline Phosphatase 97 U/L (46-116) Total Protein 6.7 g/dL (5.7-8.2) Albumin 4.1 g/dL (3.2-4.8) POC Glucose 320 mg/dl (70-106) Hepatitis B Surface Antigen Negative (Negative) Hepatitis C Antibody Negative (Negative) Magnesium Level 2.0 mg/dL (1.6-2.6) Amylase Level 82 U/L (30-118) Plasma/Serum Blood Alcohol < 3.0 mg/dL (<10) Test 10/14/24 05:15 10/14/24 03:25 10/14/24 01:45 Urine Color Light-yellow (Yellow) Urine Clarity Clear (Clear) Urine pH 7.0 (5.0-9.0) Urine Specific [place] 1.034 (1.001-1.035) Urine Protein Trace (Negative) Urine Ketones 1+ (Negative) Urine Blood Negative /uL (Negative) Urine Nitrite Negative (Negative) Urine Bilirubin Negative (Negative) Urine Urobilinogen Normal mg/dL (Negative) Urine Leukocyte Esterase Negative /uL (Negative) Urine RBC None seen /hpf (0 - 3) Urine Microscopic WBC < 1 /HPF (0-3) Urine Squamous Epithelial Cells None seen /hpf (<5) Urine Bacteria None seen /hpf (None Seen) Urine Glucose 4+ mg/dL (Normal) Lipase 62 U/L (12-53) Hemoglobin A1c 10.2 % A1C (<5.7) Troponin I High Sensitivity < 3 ng/L (</=54) Other Laboratory Tests 10/15/24 07:01 Brief Hx & Hospital Course: 64 year old male with a history of hypertension hypercholesterolemia [place] status post stents at [place] five years ago and diabetes chronic alcohol abuse came in complaining of abdominal pain patient has found to be acute gastroenteritis treated with the Flagyl banana bag and Librium lipase slightly elevated 62 diabetes 300 of glucose A1c 10.2 advised compliance with the insulin. At the time of discharge patient is afebrile stable vital signs found eating lunch. Discharged home on thiamine folic acid multivitamin and Zofran and Librium. Advised to stop drinking alcohol Consults/Reason for consult None Operations or Procedures CT abdomen pelvis without contrast Condition at Discharge: Fair Final Diagnosis/Problems List Intractable abdominal pain secondary to Acute gastroenteritis Alcoholic withdrawal: Banana bag Librium Mild Pancreatitis lipase 62 Mild bilateral hydroureteronephrosis Hypertension Hypercholesterolemia History of [place] status post PTCA x4 at [place] five years ago Possible food poisoning: CT abdomen pelvis without contrast negative Uncontrolled diabetes glucose 300 A1c 10.2, insulin sliding scale Discharge Disposition: Home Discharge Instruct/Medications Diet: Cardiac 2g Na,low cholest Activity: Light activity Follow Up/Referral: Follow up with the primary Dr Stop drinking alcohol Medications: Thiamine Folic acid Zofran Librium Transmitted to pharmacy 35 (Time taken for discharge summary 35 minutes) Discharge Statement: "Patient was advised to return to the ER or call 911 if any headaches, dizziness, shortness of breath, chest pain, abdominal pain, bleeding, fevers, or worsening of medical condition. Patient was counseled about treatment plan, medications, possible side effects, patientverbalized understanding. All questions were answered to the best of my ability. This discharge took greater then 30 minutes in planning, reviewing documentation, counseling the patient, and discussing with other team members." ASSESSMENT ASSESSMENT Hospital Course Improved Assessment Intractable abdominal pain secondary to Acute gastroenteritis Alcoholic withdrawal: Banana bag Librium Mild Pancreatitis lipase 62 Mild bilateral hydroureteronephrosis Hypertension Hypercholesterolemia History of [place] status post PTCA x4 at [place] five years ago Possible food poisoning: CT abdomen pelvis without contrast negative Uncontrolled diabetes glucose 300 A1c 10.2, insulin sliding scale Date of Service: Oct 16, 2024 Billing Provider: LESA CAMPOS MD Common Visit Codes: [id number] DISCH DAY >30min LESA CAMPOS MD Oct 16, 2024 12:33
[2024-10-16 13:16] VITALS: BP 133/80; PULSE 93; RESP 18; TEMP 98.1; O2SAT 96
[2024-10-16 17:00] VITALS: BP 134/76; PULSE 89; RESP 15; TEMP 98.2; O2SAT 97
== END 2024-10-16 18:55 | disposition home or self-care (01) | DRG 391 ==
LOC: ER 01:21 → EDBD 01:21 → OVERFLOW 06:41 → WEST WING 21:07
PROVIDERS: ADMIT Family Medicine; ATTEND Family Medicine
DX: K52.9 Noninfective gastroenteritis and colitis, unspecified (principal); K85.90 Acute pancreatitis without necrosis or infection, unspecified; E87.1 Hypo-osmolality and hyponatremia; F10.239 Alcohol dependence with withdrawal, unspecified; N13.30 Unspecified hydronephrosis; E78.00 Pure hypercholesterolemia, unspecified; I10 Essential (primary) hypertension; E11.9 Type 2 diabetes mellitus without complications; K76.0 Fatty (change of) liver, not elsewhere classified; K44.9 Diaphragmatic hernia without obstruction or gangrene; Z79.899 Other long term (current) drug therapy; Z79.4 Long term (current) use of insulin; Z98.61 Coronary angioplasty status; I25.2 Old myocardial infarction; Y90.9 Presence of alcohol in blood, level not specified
CPT/HCPCS: 36415; 74177; 80053; 80320; 81001; 82150; 82962; 83036; 83690; 83735; 84484; 85025; 86803; 87340; 93005; 96361; 96374; 96375; 96376; 99291; G0378; J1815; J1885; J2405; J2470

== ENCOUNTER 2025-01-26 09:55 | Outpatient (CLI) | payer MEDICARE, MEDICAID ==
[~2025-01-26] VITALS: Ht 160 cm; Wt 63.5 kg
[~2025-01-26 09:55] MED LIST: CHL25C PO; CLOP75TA70 PO; FOLI-119 PO; METO-289 PO; THIA100T13 PO; ZOFR4T PO
[2025-01-26] MEDS ORDERED: ADENOSINE 90 MG/30 ML INJ IV ONE (11:06)
[2025-01-26] MEDS ORDERED: ADENOSINE 53 MG in GIVE UN-DILUTED 0 ML IV ONE (12:30)
== END 2025-01-26 17:00 | disposition home or self-care (01) ==
LOC: Rad HDHVI 09:55
PROVIDERS: ATTEND Internal Medicine Cardiovascular Disease
DX: I25.10 Atherosclerotic heart disease of native coronary artery without angina pectoris (principal); I11.0 Hypertensive heart disease with heart failure; I50.23 Acute on chronic systolic (congestive) heart failure; I25.2 Old myocardial infarction; E11.9 Type 2 diabetes mellitus without complications; I73.9 Peripheral vascular disease, unspecified; E78.00 Pure hypercholesterolemia, unspecified; Z79.82 Long term (current) use of aspirin; Z82.49 Family history of ischemic heart disease and other diseases of the circulatory system
CPT/HCPCS: 78452; 93017; A9500; J0153